=== PATIENT | female | born 1980 | race Caucasian/White ===

== ENCOUNTER 2016-07-11 18:15 | Emergency (ER) | payer OTHER ==
[2016-07-11 19:38] VITALS: BP 122/80
--- NOTE | 2016-07-11 20:30 | UC ---
Throat Pain/Nasal [place] HPI - HPI Summary HPI Summary: complaint of nasal congestion adn cough for over 2 weeks coughing is worse at ngiht productive cough with some sputum slight sinus pressure very fatigued can't sleep d/t cough denies fveer but has had some chills using nyquil helps with sleep denies shortness of breath , wheezing - History of Current Complaint Chief Complaint: UCRespiratory Stated Complaint: SINUS PRESSURE, COUGH Time Seen by Provider: 07/11/16 20:23 Hx Obtained From: Patient Hx Last Menstrual Period: pt has an IUD and states not getting a menses - Allergies/Home Medications Allergies/Adverse Reactions: Allergies Allergy/AdvReac Type Severity Reaction Status Date / Time No Known Allergies Allergy Verified 07/11/16 19:38 PMH/Surg Hx/FS Hx/Imm Hx Previously Healthy: Yes Endocrine History Of: Denies: Diabetes Cardiovascular History Of: Denies: Hypertension, Pacemaker/ICD - Surgical History Surgical History: None - Family History Known Family History: Negative: Cardiac Disease, Hypertension, Diabetes - Social History Occupation: Employed Full-time Lives: With Family Alcohol Use: Weekly Alcohol Amount: once a week Substance Use Type: None Smoking Status (MU): Never Smoked Tobacco Review of Systems Constitutional: Negative Skin: Negative Eyes: Negative ENT: Nasal Discharge Respiratory: Cough Cardiovascular: Negative Gastrointestinal: Negative Genitourinary: Negative Motor: Negative Neurovascular: Negative Musculoskeletal: Negative Neurological: Negative Psychological: Negative All Other Systems Reviewed And Are Negative: Yes Physical Exam Triage Information Reviewed: Yes Appearance: No Pain Distress, Well-Nourished Vital Signs: Initial Vital Signs Temp 99.6 F 07/11/16 19:33 Pulse 72 07/11/16 19:33 Resp 14 07/11/16 19:33 BP 122/80 07/11/16 19:33 Pulse Ox 99 07/11/16 19:33 Vital Signs Reviewed: Yes Eyes: Positive: Conjunctiva Clear ENT: Positive: Pharynx normal, Pharyngeal erythema, Nasal congestion, Nasal drainage Neck: Positive: No Lymphadenopathy Respiratory: Positive: Wheezing - BLL. Negative: Rhonchi, Stridor Cardiovascular: Positive: RRR, No Murmur, Pulses Normal Abdomen Description: Positive: Nontender, Soft Bowel Sounds: Positive: Present Musculoskeletal: Positive: No Edema Neurological: Positive: Alert Psychological Exam: Normal Skin Exam: Normal Throat Pain/Nasal Course/Dx - Differential Dx/Diagnosis Differential Diagnosis/HQI/PQRI: Laryngitis, Sinusitis, URI, Other Provider Diagnoses: bronchitis Discharge - Discharge Plan Condition: Stable Disposition: HOME Prescriptions: Albuterol HFA INHALER* [Ventolin HFA Inhaler*] 2 puff INH Q4H PRN #1 mdi PRN Reason: Cough Azithromycin TAB* [Zithromax TAB (Z-DEVIN) 250 mg #6 tabs] 2 tab PO .TODAY, THEN 1 DAILY #1 devin Spacer/Aerosol-Holding Chamber [Aerochamber Mv] 1 mis XX Q4HR #1 mis Patient Education Materials: Acute Bronchitis (ED) Referrals: Renetta Perkins MD [Primary Care Provider] - Additional Instructions: Please take antibiotic as directed Use your albuterol inhaler every 4-6 hours when needed for wheezing, shortness of breath or uncontrolled coughing. Increase fluids and rest Take acetaminophen or ibuprofen for fever or pain Please review your discharge instructions. If your symptoms do not improve please call your primary care provider or return to urgent care.
== END 2016-07-11 20:43 | disposition home or self-care (01) ==
LOC: UCCORT 18:15
DX: J40 Bronchitis, not specified as acute or chronic (principal)
CPT/HCPCS: 99212; G0463

== ENCOUNTER 2016-07-22 10:22 | Emergency (ER) | payer OTHER ==
[2016-07-22 10:56] VITALS: BP 126/67
--- NOTE | 2016-07-22 11:33 | UC ---
Respiratory Complaint HPI - HPI Summary HPI Summary: 36 y/o female complaining of nonproductive persistent cough since June, was dx with bronchitis on 07/11/16 treated with a z-juju and albuterol inhaler. [place] symptoms improved with albuterol inhaler use. Cough located in the upper airway. Denies fever, sinus congestion, or fatigue. - History of Current Complaint Chief Complaint: UCRespiratory Stated Complaint: COUGH Time Seen by Provider: 07/22/16 11:07 Hx Obtained From: Patient Hx Last Menstrual Period: 2 mos. ?: No Onset/Duration: Gradual Onset Severity Initially: Moderate Severity Currently: Mild Character: Cough: Nonproductive Aggravating Factors: Nothing Alleviating Factors: Nothing Associated Signs And Symptoms: Positive: Nasal Congestion. Negative: Dyspnea, Fever, Chills, Pleuritic Chest Pain, Wheezing, Hemoptysis, Dizziness, Hoarseness , Sinus Discomfort - Risk Factors Pulmonary Embolism Risk Factors: Negative Cardiac Risk Factors: Negative Pseudomonas Risk Factors: Negative Tuberculosis Risk Factors: Negative - Allergies/Home Medications Allergies/Adverse Reactions: Allergies Allergy/AdvReac Type Severity Reaction Status Date / Time No Known Allergies Allergy Verified 07/22/16 10:56 PMH/Surg Hx/FS Hx/Imm Hx Previously Healthy: Yes Endocrine History Of: Denies: Diabetes Cardiovascular History Of: Denies: Hypertension, Pacemaker/ICD Respiratory History Of: Denies: COPD, Asthma, Bronchitis, Pneumonia, Pulmonary Embolism GI/ History Of: Denies: Gastroesophageal Reflux, Ulcer, Gastrointestinal Bleed, Gall Bladder Disease, Kidney Stones, Diverticulitis, Renal Disease, Urosepsis Neurological History Of: Denies: TIA, CVA, Dementia, Seizures, Migraine Psychological History Of: Denies: Anxiety, Depression, Bipolar Disorder, Schizophrenia, Post Traumatic Stress Disorder - Surgical History Surgical History: None - Family History Known Family History: Positive: Cardiac Disease - Fatehr: stent placement, Hypertension - Father, Blood Disorder - Mother: "blood clots" Negative: Diabetes - Social History Occupation: Employed Full-time Lives: With Family - With boyfriend Alcohol Use: Weekly Alcohol Amount: once a week Substance Use Type: None Smoking Status (MU): Never Smoked Tobacco Have You Smoked in the Last Year: No - Immunization History Hx Tetanus, Diphtheria Vaccination: No Vaccination Up to Date: No Review of Systems Constitutional: Negative Skin: Negative Eyes: Negative ENT: Negative Respiratory: Cough Cardiovascular: Negative Gastrointestinal: Negative Genitourinary: Negative Motor: Negative Neurovascular: Negative Musculoskeletal: Negative Neurological: Negative Psychological: Negative All Other Systems Reviewed And Are Negative: Yes Physical Exam Triage Information Reviewed: Yes Appearance: Well-Appearing Vital Signs: Initial Vital Signs Temp 98.2 F 07/22/16 10:47 Pulse 85 07/22/16 10:47 Resp 20 07/22/16 10:47 BP 126/67 07/22/16 10:47 Pulse Ox 99 07/22/16 10:47 Eye Exam: Normal Eyes: Positive: Conjunctiva Clear ENT: Positive: Normal ENT inspection, Hearing grossly normal, Pharynx normal, Nasal congestion, TMs normal. Negative: Pharyngeal erythema, Nasal drainage Dental Exam: Normal Neck exam: Normal Neck: Positive: Supple, Nontender, No Lymphadenopathy Respiratory Exam: Normal Respiratory: Positive: Chest non-tender, Lungs clear, Normal breath sounds, No respiratory distress. Negative: Respiratory distress, Decreased breath sounds, Wheezing Cardiovascular: Positive: RRR, No Murmur, Pulses Normal Abdominal Exam: Normal Abdomen Description: Positive: Nontender Bowel Sounds: Positive: Present Musculoskeletal Exam: Normal Musculoskeletal: Positive: Strength Intact, ROM Intact, No Edema Neurological: Positive: Alert Psychological Exam: Normal Skin Exam: Normal UC Diagnostic Evaluation - Laboratory O2 Sat by Pulse Oximetry: 99 Respiratory Course/Dx - Differential Dx/Diagnosis Provider Diagnoses: post-viral cough Discharge - Discharge Plan Condition: Stable Disposition: HOME Prescriptions: Albuterol HFA INHALER* [Ventolin HFA Inhaler*] 1 - 2 puff INH Q4H PRN #1 mdi PRN Reason: wheeze, cough Benzonatate CAP* [Tessalon CAP*] 100 mg PO TID PRN #30 cap PRN Reason: Cough Patient Education Materials: Acute Cough (ED) Referrals: Renetta Perkins MD [Primary Care Provider] - Additional Instructions: POST-VIRAL COUGH: A very common cause of persistent cough is called "post-viral cough syndrome." During a viral infection, the virus can irritate your bronchial tubes. Then even after the infection is over, you may continue to cough. Your cough is left over from your recent viral infection. You do not show evidence of a continuing viral infection,bronchitis or pneumonia. You do not need antibiotics at this time. It may be helpful to use inhaled cool mist, throat lozenges, cough medication or bronchial inhalers to open up your bronchial tubes. We expect you will be improved in a week or two. Please get back to us if you have fever, chest pain, blood in the sputum, wheezing or shortness of breath. Use 2 puffs of the inhaler in the morning and at night for the next three days. Try benzonate capsules for cough suppression.
== END 2016-07-22 11:42 | disposition home or self-care (01) ==
LOC: UCCORT 10:22
DX: R05 Cough (principal)
CPT/HCPCS: 99212; G0463